=== PATIENT | male | born 1990 | race Caucasian/White ===

== ENCOUNTER 2018-06-16 00:17 | Emergency (ER) | payer OTHER ==
[2018-06-16 00:22] VITALS: BP 139/75
--- NOTE | 2018-06-16 00:30 | EDPHY ---
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 Patient had given the patient an IM injection of Versed and accidentally stuck himself the hand after administering the medication to the patient. Is complaining of minimal pain. Had only scant amount of bleeding. No other injuries. ROS: 10 systems were reviewed and were negative except those elements noted in the HPI. PMH: Denies Social History: No smoking Family History: non-contributory Physical Exam: Gen: Awake, Alert, No Distress HEENT: Nose: no rhinorrhea Eyes: PERRLA, EOMI Mouth: Moist mucosa Neck: Supple, no JVD Chest: No distress Heart: Normal perfusion Abd: Normal inspection Ext: no edema, left hand: There is a small needle stick in the palm of his left hand at the base of his 3rd finger. Nontender. Full flexion extension of the digit. Sensations intact laterally medially. Capillary refills less than 2 sec. Skin: no rash Neuro: CN II-XII intact, Sensation grossly intact, Strength 5/5 in bilateral upper and lower extremities - Personal History Current Tetanus/Diphtheria Vaccine: Yes Current Tetanus Diphtheria and Acellular Pertussis (TDAP): Yes - Medical/Surgical History Hx Asthma: No Hx Chronic Respiratory Disease: No Hx Diabetes: No Hx Cardiac Disease: No Hx Renal Disease: No Hx Cirrhosis: No Hx Alcoholism: No Hx HIV/AIDS: No Hx Splenectomy or Spleen Trauma: No Other PMH: denies - Social History Smoking Status: Never smoked Constitutional: Initial Vital Signs Temperature (C) 36.7 C 06/16/18 00:20 Heart Rate 82 06/16/18 00:20 Respiratory Rate 18 06/16/18 00:20 Blood Pressure 139/75 H 06/16/18 00:20 O2 Sat (%) 95 06/16/18 00:20 O2 Delivery Mode Room Air Allergies/Adverse Reactions: No Known Allergies Allergy (Unverified 06/16/18 00:20) Home Medications: Medication Instructions Recorded NK [No Known Home Meds] 06/16/18 Medical Decision Making ED Course/Re-evaluation: 28-year-old status post needlestick injury. Patient has had baseline labs drawn per protocol. The source patient is low risk. Patient has been counseled regarding risks. He is declining post exposure prophylaxis at this time. Departure - Departure Disposition: Home, Routine, Self-Care Clinical Impression: Needlestick injury accident with exposure to body fluid Condition: Good Instructions: Postexposure Prophylaxis (ED) Additional Instructions: Follow up with workman's Comp in 2-3 days for per your employer protocol. Referrals: Work Comp Referral [facility] [Outside] - As per Instructions
[2018-06-18 04:05] LABS: HEPATITIS B SURFACE ANTIGEN NEGATIVE (NEGATIVE); HEPATITIS C ANTIBODY TOTAL NEGATIVE (NEGATIVE); HIV TYPE 1 AND 2 NEGATIVE (NEGATIVE)
== END 2018-06-16 00:45 | disposition home or self-care (01) ==
DX: Z77.21 Contact with and (suspected) exposure to potentially hazardous body fluids (principal); S61.432A Puncture wound without foreign body of left hand, initial encounter; X58.XXXA Exposure to other specified factors, initial encounter; Y92.89 Other specified places as the place of occurrence of the external cause; Y93.89 Activity, other specified; Y99.0 Civilian activity done for income or pay
CPT/HCPCS: G0472